=== PATIENT | male | born 1945 | race Caucasian/White ===

== ENCOUNTER 2022-10-31 08:34 | Emergency (ER) | payer MEDICARE ==
[~2022-10-31] VITALS: Ht 172.7 cm; Wt 101.0 kg
[~2022-10-31 08:34] MED LIST: ADVAIR 250-501 EACH; ASPIR 8181 MG PO; CARISOPRODOL350 MG PO; CENTRUM SILVER1 EAC3 PO; COLCRYS0.6 MG PO; DICYCLOMINE HCL20 MG PO; GABAPENTIN300 MG PO; LIDOCAINE OINTMENT; LIPITOR80 MG PO; LIVALO2 MG PO; MELATONIN 3 MG1 EACH PO; MELATONIN3 MG PO; METOPROLOL TART25 MG PO; MONTELUKAST SOD10 MG PO; NEXIUM40 MG PO; NORCO 10-325 T1 EACH PO; TOPROL XL50 MG PO; TRAZODONE HCL50 MG PO; VOLTAREN100 GM
[2022-10-31] MEDS ORDERED: ALLOPURINOL100 MG PO (08:59)
[2022-10-31] MEDS ORDERED: OMEPRAZOLE40 MG PO (08:59)
[2022-10-31] MEDS ORDERED: LEVOCETIRIZINE D5 MG (08:59)
[2022-10-31] MEDS ORDERED: VITAMIN D325 MCG (08:59)
[2022-10-31] MEDS ORDERED: ATORVASTATIN CA20 MG PO (08:59)
[2022-10-31] MEDS ORDERED: CYMBALTA30 MG PO (08:59)
[2022-10-31] MEDS ORDERED: BUSPIRONE HCL5 MG PO (08:59)
[2022-10-31] MEDS ORDERED: tumeric curcumin PO (08:59)
[2022-10-31] MEDS ORDERED: METOPROLOL SUCC25 MG PO (08:59)
[2022-10-31] MEDS ORDERED: BUPROPION XL150 MG PO (08:59)
[2022-10-31 10:37] VITALS: O2SAT 96
[2022-10-31] MEDS ORDERED: CEPHALEXIN500 MG PO (11:23)
[2022-10-31] MEDS ORDERED: ULTRAM 50MG50 MG PO (11:24)
== END 2022-10-31 11:43 | disposition home or self-care (01) ==
LOC: FSED 08:40
DX: S16.1XXA Strain of muscle, fascia and tendon at neck level, initial encounter (principal); S52.022A Displaced fracture of olecranon process without intraarticular extension of left ulna, initial encounter for closed fracture; S09.90XA Unspecified injury of head, initial encounter; M25.551 Pain in right hip; I10 Essential (primary) hypertension; E78.5 Hyperlipidemia, unspecified; F32.A Depression, unspecified; Z79.82 Long term (current) use of aspirin; Z79.899 Other long term (current) drug therapy; W18.2XXA Fall in (into) shower or empty bathtub, initial encounter; Y92.002 Bathroom of unspecified non-institutional (private) residence as the place of occurrence of the external cause
CPT/HCPCS: 70450; 72125; 72192; 99284